=== PATIENT | female | born 1945 | race Caucasian/White ===

== ENCOUNTER 2018-11-15 15:49 | Inpatient (IN) | payer MEDICARE, BC ==
[2018-11-15] MEDS ORDERED: Ondansetron INJ* 2 MG/ML VIAL IV ONE (15:55)
[2018-11-15] MEDS ORDERED: NS 0.9% 1000 ML** 1,000 ML IV ONE ×3 (15:55→17:07)
--- NOTE | 2018-11-15 16:08 | ED ---
GI/ HPI - HPI Summary HPI Summary: A 73 y/o female brought in by [facility] ambulance presents to [facility] with a chief complaint of N/V/D. Diarrhea started one week ago while N/V started today. She also reports abdominal pain and a near syncopal episode while having a BM. Per EMS, the patient was found to be hypotensive. She was pale and diaphoretic upon arrival. IV fluids were given en route. - History of Current Complaint Stated Complaint: NEAR SYNCOPE, N/V PER /EMS Hx Obtained From: Patient, EMS Onset/Duration: Started Days Ago, Still Present Timing: Constant, Lasting Days Severity: Severe Current Severity: Severe Pain Intensity: 8 - out of 10 Location of Pain: Diffuse Pain Characteristics: Unable to describe Associated Signs and Symptoms: Positive: Nausea, Vomiting, Diarrhea, Abdominal Pain, Other: - near syncope. Negative: Fever Aggravating Factor(s): Nothing Alleviating Factor(s): Nothing - Allergy/Home Medications Allergies/Adverse Reactions: Allergies Allergy/AdvReac Type Severity Reaction Status Date / Time azithromycin Allergy Rash Verified 11/15/18 15:59 codeine Allergy Unknown Verified 11/15/18 16:02 Reaction Details levofloxacin [From Levaquin] Allergy Unknown Verified 11/15/18 16:00 Reaction Details Home Medications: Home Medications Anastrozole (NF) [Arimidex (NF)] 1 mg PO DAILY 11/15/18 [History Confirmed 11/15] Betamethasone Dip 0.05% ON(NF) [Betamethasone Dipr 0.05% OINT(NF)] 1 applic TOPICAL BID PRN 11/15/18 [History Confirmed 11/15/18] Cetirizine* [ZyrTEC 10 MG TAB*] 10 mg PO DAILY 11/15/18 [History Confirmed 11/15] Cholecalciferol TAB* [Vitamin D TAB*] 2,000 units PO DAILY 11/15/18 [History Confirmed 11/15/18] Denosumab(NF) [Prolia(NF)] 60 mg SUBCUT .TWICE YEARLY 11/15/18 [History Confirmed 11/15/18] Fluticasone-Salmeterol 100-50* [Advair Diskus 100-50*] 1 puff INH BID 11/15/18 [ History Confirmed 11/15/18] Gabapentin CAP(*) [Neurontin 100 mg CAP(*)] 100 mg PO QID 11/15/18 [History Confirmed 11/15/18] Hydroxychloroquine TAB* [Plaquenil TAB*] 400 mg PO DAILY 11/15/18 [History Confirmed 11/15/18] Lisinopril TAB* [Prinivil TAB*] 5 mg PO DAILY 11/15/18 [History Confirmed ] Omeprazole CAP (NF) [Prilosec CAP* 20 MG] 20 mg PO DAILY 11/15/18 [History Confirmed 11/15/18] Tacrolimus 0.03% OINT(NF) [Protopic 0.03% OINT(NF)] 1 applic TOPICAL BID PRN [History Confirmed 11/15/18] predniSONE TAB* [Deltasone TAB*] 5 mg PO DAILY 11/15/18 [History Confirmed 11/15] PMH/Surg Hx/FS Hx/Imm Hx Sensory History: Denies: Hx Deafness EENT History: Denies: Hx Deafness - Family History Known Family History: Negative: Blood Disorder - Social History Lives: With Family Hx Substance Use: No Review of Systems Positive: Skin Diaphoresis. 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 Skin: The skin is warm and dry and pale, diaphoretic. HEENT: The head is normocephalic and atraumatic. The pupils are equal and reactive. The conjunctivae are clear and without drainage. Nares are patent and without drainage. Mouth reveals moist mucous membranes and the throat is without erythema and exudate. The external ears are intact. The ear canals are patent and without drainage. The tympanic membranes are intact. Neck: The neck is supple with full range of motion and non-tender. There are no carotid bruits. There is no neck vein distension. Respiratory: Chest is non-tender. Lungs are clear to auscultation and breath sounds are symmetrical and equal. Cardiovascular: Heart is regular rate and rhythm. There is no murmur or rub auscultated. There is no peripheral edema and pulses are symmetrical and equal. Abdomen: Mild diffuse lower abdominal tenderness. There are normal bowel sounds heard in all four quadrants and there is no organomegaly palpated. Musculoskeletal: There is no back tenderness noted. Extremities are non-tender with full range of motion. There is good capillary refill. There is no peripheral edema or calf tenderness elicited. Neurological: Patient is alert and oriented to person, place and time. The patient has symmetrical motor strength in all four extremities. Cranial nerves are grossly intact. Deep tendon reflexes are symmetrical and equal in all four extremities. Psychiatric: The patient has an appropriate affect and does not exhibit any anxiety or depression. GCS: 14 Triage Information Reviewed: Yes Vital Signs Reviewed: Yes Diagnostics - Laboratory Result Diagrams: 11/15/18 16:01 11/15/18 16:01 Lab Statement: Any lab studies that have been ordered have been reviewed, and results considered in the medical decision making process. - CT abdomen/pelvis CT Interpretation Completed By: Radiologist Summary of CT Findings: No hydronephrosis is noted in either kidney. Nonobstructing calculi is noted. in both kidneys. ED physician has reviewed this imaging report. - EKG 15:59 Cardiac Rate: Other Rate - Paced rhythm at 85 bpm Summary of EKG Findings: EKG at 15:59 showed Paced rhythm at 85 bpm. GIGU Course/Dx - Course Course Of Treatment: On arrival, Ms. Mitchell was diaphoretic and lying on the gurney. She preferred to keep her eyes closed but open them and answered my questions readily. She told me that she's been having low abdominal pain for couple days accompanied by diarrhea and nausea and vomiting. She almost fainted while having a bowel movement and her called the ambulance. The ambulance crew found her to be hypotensive and give her fluids en route. When she arrived here her blood pressure was doing a little bit better and she was not tachycardic. She continued to receive IV fluids while her workup was in progress. She was found to have a mild leukocytosis and spiked a fever up to 102 at one point here in the emergency department. She was given antiemetics as well as Tylenol. The hospitalist service was contacted for admission and she was also given Rocephin with a concern for sepsis. - Diagnoses Provider Diagnoses: Dehydration, Abdominal pain, Gastroenteritis - Physician Notifications Discussed Care Of Patient With: Ngoc Charla Time Discussed With Above Provider: 17:17 Instructed by Provider To: Admit As Inpatient - Critical Care Time Critical Care Time: 30-74 min Discharge - Sign-Out/Discharge Documenting (check all that apply): Patient Departure - admit Patient Received Moderate/Deep Sedation with Procedure: No - Discharge Plan Condition: Stable Disposition: ADMITTED TO [facility] Referrals: No Primary Care Phys,NOPCP [Primary Care Provider] - - Billing Disposition and Condition Condition: STABLE Disposition: Admitted to [facility] - Attestation Statements Document Initiated by Herrerae: Yes Documenting Scribe: Glen Harry Provider For Whom Liangibmich is Documenting (Include Credential): Tello Corona MD Scribe Attestation: IGlen scribed for Tello Corona MD on 11/15/18 at 1805. Scribe Documentation Reviewed: Yes Provider Attestation: The documentation as recorded by the [place] accurately reflects the service I personally performed and the decisions made by me, Tello Corona MD Status of Scribe Document: Viewed
[2018-11-15 16:14] LABS: ABS Basophils 0 10^3/ul (0-0.2); ABS Eosinophils 0 10^3/ul (0-0.6); ABS Lymphocytes 1.4 10^3/ul (1.0-4.8); ABS Monocytes 1.1 10^3/ul (0-0.8); ABS Neutrophils 11.4 10^3/ul (1.5-7.7); ABS Nucleated RBC 0 10^3/ul; Eosinophil % 0.1 %; Hematocrit 39 % (33-41); Hemoglobin 12.7 g/dL (12.0-16.0); Lymphocyte % 9.8 %; Mean Corpuscular HGB Conc 33 g/dL (31-36); Mean Corpuscular Hemoglobin 31 pg (27-31); Mean Corpuscular Volume 95 fL (80-97); Mean Platelet Volume 8.8 fL (7.4-10.4); Nucleated Red Blood Cells % 0; Platelet Count 206 10^3/uL (150-450); Red Blood Count 4.08 10^6 /uL (3.70-4.87); Red Cell Distribution Width 15 % (10.5-15); White Blood Count 13.9 10^3/uL (3.5-10.8)
[2018-11-15 16:30] LABS: ALT 14 U/L (7-52); Albumin/Globulin Ratio 1.3 (1-3); Alkaline Phosphatase 44 U/L (34-104); BUN/Creatinine Ratio 24.1 (8-20); Blood Urea Nitrogen 45 mg/dL (6-24); C Reactive Protein 9.71 mg/L (<8.01); CO2 Carbon Dioxide 19 mmol/L (22-32); Calcium 8.9 mg/dL (8.6-10.3); Chloride 109 mmol/L (101-111); EGFR Non-African American 26.5 (>60); Globulin 3.2 g/dL (2-4); Glucose 132 mg/dL (70-100); Sodium 140 mmol/L (135-145); Total Protein 7.2 g/dL (6.4-8.9)
[2018-11-15 17:06] LABS: Anion Gap 12 mmol/L (2-11)
[2018-11-15] MEDS ORDERED: cefTRIAXone(*) 1 GM in NS 0.9% 50 ML* 50 ML IVPB ONE (17:06)
[2018-11-15] MEDS ORDERED: Acetaminophen TAB* 325 MG PO ONE (17:06)
[2018-11-15 18:11] LABS: Troponin I 0.03 ng/mL (<0.04)
[2018-11-15 18:12] LABS: Potassium Redraw 4.8 mmol/L (3.5-5.0)
[2018-11-15] MEDS ORDERED: Piperacillin/Tazobac ADVAN(*) 3.375 GM in NS 0.9% 100 ML* 100 ML IVPB ONE (18:14)
[2018-11-15 18:17] LABS: Urine Appearance Cloudy; Urine Bacteria Absent (Absent); Urine Bilirubin Negative (Negative); Urine Blood Negative (Negative); Urine Color Yellow; Urine Glucose Negative (Negative); Urine Ketones Negative (Negative); Urine Nitrite Negative (Negative); Urine Protein 1+(30 mg/dL) (Negative); Urine Red Blood Cell Trace(0-2/hpf) (Absent); Urine Specific Gravity 1.006 (1.010-1.030); Urine Urobilinogen Negative (Negative); Urine White Blood Cell Trace(0-5/hpf) (Absent)
[2018-11-15] MEDS ORDERED: Acetaminophen TAB* 325 MG PO PRN (18:22)
[2018-11-15] MEDS ORDERED: Zosyn per Pharmacy* NOTE FOLLOW UP SCH (19:00)
[2018-11-15] MEDS ORDERED: Lactated Ringers 1000 ML Bag* 1,000 ML IV SCH (19:00)
[2018-11-15] MEDS: Lactated Ringers 1000 ML Bag* 1,000 ML IV SCH (19:55)
--- NOTE | 2018-11-15 20:17 | PN ---
Hospitalist Progress Note Date of Service: 11/15/18 HOSPITALIST ADDENDUM Case reviewed and d/w Lorri Estrella NP. 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 Near syncopal episode today. Labs, EKG, CT reviewed. Suspect patient probably had viral gastroenteritis causing her diarrhea and probably now has severe sepsis secondary to UTI. Will monitor in ICU, continue fluid resuscitation, Zosyn. Will increase her steroids to stress dose.
[2018-11-15] MEDS: Mometasone/Formoter 100/5 MDI INH SCH (20:44)
[2018-11-15 20:45] LABS: Magnesium 1.5 mg/dL (1.9-2.7); Potassium 3.9 mmol/L (3.5-5.0)
[2018-11-15] MEDS: Hydrocortisone INJ* 100 MG VIAL IV SCH (20:54)
--- NOTE | 2018-11-15 21:15 | HP ---
CC: Dr. Tate Bowles, [address] [place] [address] * HISTORY AND PHYSICAL: DATE OF ADMISSION: 11/15/18 PRIMARY CARE PROVIDER: Dr. Tate Bowles, phone number [phone]. ATTENDING PHYSICIAN: Dr. Ngoc Brownlee * (dictated by Weston Luong, DAVID) CHIEF COMPLAINTS: 1. Syncope. 2. Nausea. 3. Diarrhea. 4. Vomiting. 5. Abdominal pain. HISTORY OF PRESENT ILLNESS: Mrs. 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 Patient reports she was in her normal state of health, residing in [place] until about a week ago, she started to have nausea and diarrhea. She had been started on Bystolic (beta velasquez) before the symptoms started; therefore, she contacted her basketball referee, who mentioned that the nausea and diarrhea could be related to the Bystolic. Patient was instructed to stop the Bystolic, which she did yesterday. Her last dose was the day before. Patient then started lisinopril yesterday. She reports that she felt improved yesterday as she was no longer having nausea and diarrhea. Patient boarded a plane and flew here to [place] to visit family. When she arrived in [place], she started to have nausea, vomiting, diarrhea, and lower abdominal pain again. Patient reports she was in the bathroom because she felt like she needed to have a bowel movement. She was not straining, but had a syncopal episode. EMS was called and she was brought to the emergency room. While in the emergency room, patient was found to be pale, diaphoretic, hypotensive. IV fluids were given. Patient was started on ceftriaxone and Zosyn was administered. In addition, patient was noted to have mild leukocytosis with a WBC of 13.9. She was also noted to be mildly acidotic with a carbon dioxide of 19, anion gap of 12, BUN of 45, and creatinine of 1.87. Patient also had an elevated lactic at 2.8. During her admission, her blood pressures were mostly below 100 systolically. In addition, she did have a temp recorded of 102.5 and was experiencing chills. Given these symptoms and findings, we were asked to admit patient to the hospital. PAST MEDICAL HISTORY: 1. Connective-tissue disease/autoimmune disorder. 2. Lymphoma of the lung, status post chemo and radiation. 3. 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 4. Multiple myeloma cells in her spine (being observed by [facility]). 5. Hypertension. 6. Hypothyroid. PAST SURGICAL HISTORY: Mastectomy. HOME MEDICATIONS: 1. Protopic 0.03% 1 application topical b.i.d. p.r.n. 2. Betamethasone 1 application topical b.i.d. p.r.n. 3. Lisinopril 5 mg p.o. daily. 4. Advair Diskus 100/50 one puff inhalation b.i.d. 5. Prolia 60 mg subcu twice yearly. 6. Zyrtec 10 mg p.o. daily. 7. Vitamin D 2000 units p.o. daily. 8. Arimidex 1 mg p.o. daily. 9. Prednisone 5 mg p.o. daily. 10. Plaquenil 400 mg p.o. daily. 11. Omeprazole 20 mg p.o. daily. 12. Gabapentin 100 mg p.o. q.i.d. ALLERGIES: SULFA DRUGS, CODEINE, FLOXIN, LEVAQUIN, AZITHROMYCIN, PHENOBARBITAL , DARVON/DARVOCET. FAMILY HISTORY: Patient's family history is noncontributory. It should be noted that patient's son also has vomiting and diarrhea and she was with this person on Monday. SOCIAL HISTORY: Patient does not smoke, does not drink, and does not do drugs. Patient lives with her in [place]. REVIEW OF SYSTEMS: A 14-point review of systems was performed and all pertinent positive and negative findings are in the HPI. All others are negative. PHYSICAL EXAMINATION GENERAL: Mrs. Mitchell is a 73-year-old female who is lying in bed in ED, appears in no acute distress, appears stated age. VITAL SIGNS: Temperature 102.5, HR 86, RR 18, O2 saturation 92%, BP 86/59. HEENT: ENT: EOMs intact. PERRLA. Oral mucosa is moist without lesion. Posterior pharynx is clear. NECK: Full range of motion. No lymphadenopathy. RESPIRATORY: Symmetrical chest expansion. No accessory muscle use. Lungs are clear to auscultation. No rhonchi, wheezes, or rubs. CV: Regular rate and rhythm. S1 and S2 present. No murmurs, rubs, or gallops. ABDOMEN: Soft. Nondistended. Tender to palpation on lower abdomen. Bowel sounds are normoactive. EXTREMITIES: Skin is warm and smooth bilaterally. No edema. No clubbing or cyanosis. Pedal pulses are 2+ bilaterally. MUSCULOSKELETAL: Full range of motion. No pain or deformities. NEUROLOGIC: Awake, alert and oriented x4. Motor strength is 5/5 in upper and lower extremities. SKIN: Grossly intact without lesions. DIAGNOSTIC STUDIES/LAB DATA: WBC 13.9, hemoglobin 12.7, hematocrit 39, platelets 206. Sodium 140, potassium 4.8, chloride 109, carbon dioxide 19, anion gap 12, BUN 45, creatinine 1.87, glucose 113, lactic acid 2.8. Troponin 0.03. CRP 9.71, lipase 146. TSH 0.90. CT abdomen and pelvis: Impression: No hydronephrosis is noted in either kidney. No obstructing calculi are noted in both kidneys. EKG: Impression: Paced rhythm. ASSESSMENT AND PLAN: Mrs. Mitchell is a 73-year-old female with a past medical history significant for autoimmune disease, lymphoma, cytoma, multiple myeloma, hypertension, hypothyroid who presented to the emergency department today with syncopal episode, nausea and vomiting, diarrhea and meet sepsis criteria. Patient will be admitted to the ICU for further evaluation. 1. Syncope: I suspect patient's syncope is secondary to dehydration given a week's worth of nausea and diarrhea with the addition of vomiting today. Patient's labs also support the diagnosis of dehydration. We will order an echo for further evaluation. We will rehydrate patient and then obtain orthostatic vital signs. 2. Nausea, vomiting, diarrhea, and abdominal pain: As mentioned above, patient had a CT in the emergency room that was unremarkable. Given that the patient's son is also experiencing nausea and vomiting, I suspect this could be a viral illness. Also on the differential includes Clostridium difficile, ova and parasite, and other bacterial causes. I have ordered stool cultures including Clostridium difficile and ova and parasite. Patient will be rehydrated with IV fluid. Patient will have repeat labs. Patient had a urinalysis which was unremarkable. It will be sent for culture. 3. Sepsis: Patient meets sepsis criteria given fever, leukocytosis, hypotension, and suspected source of GI. Patient received adequate IV fluid bolus in the emergency room. An additional liter of LR was ordered given patient's continued hypotension. Patient will also receive LR maintenance fluid. Patient was pancultured. Patient's lactic is 2.8 and will be repeated. Patient was given ceftriaxone in the emergency room and also given Zosyn. We will continue Zosyn. 4. Autoimmune disorder/connective-tissue disease: Patient is on long-term prednisone; therefore, we will hold her oral prednisone and give her IV hydrocortisone 50 mg q.8 hours. As patient improves, we can taper her back to her regular steroid dosing. We will continue patient's Plaquenil. 5. Hypertension: Given patient's hypotension and sepsis state, we will hold her lisinopril. 6. Hypothyroid: Patient's TSH is within normal range. We will continue her levothyroxine at her home dose. 7. FEN: I have placed patient n.p.o. given her nausea, vomiting and diarrhea. She can advance as tolerated. 8. Code status: Patient is a full code. 9. DVT prophylaxis: Based on the risk assessment, patient is at high risk; therefore, I will place patient on subcu heparin. TIME SPENT: Approximately 75 minutes were spent on this admission, greater than half the time was spent with the patient and her family, obtaining my history and performing my physical exam and reviewing my plan of care. This case has been reviewed with my attending, Dr. Brownlee, who is in agreement with my plan of care. WESTON LUONG, DAVID [id number]/[facility] #: [id number] NEYDA
[2018-11-15] MEDS ORDERED: Magnesium Sulfate 2 GM IV* 2 GM/50 ML BAG IVPB ONE (21:20)
--- NOTE | 2018-11-15 21:23 | PN ---
Sepsis Event Evaluation Date of Evaluation: 11/15/18 Time of Evaluation: 21:21 Current Stage of Sepsis: Sepsis Vital Signs - Last 12 Hours: Vital Signs - 12 hr Temp Pulse Resp BP Pulse Ox 11/15/18 20:00 86 15 110/53 92 11/15/18 19:53 77 150/80 98 11/15/18 19:46 84 15 92/53 93 11/15/18 19:35 89 18 104/60 93 11/15/18 19:34 100.1 F 86 18 104/60 93 11/15/18 19:33 98.9 F 87 20 105/46 94 11/15/18 19:22 87 19 99/50 92 11/15/18 19:21 86 18 105/46 93 11/15/18 19:16 86 18 86/59 92 11/15/18 19:01 86 17 91 11/15/18 19:00 85 17 99/49 92 11/15/18 18:45 85 18 97/49 95 11/15/18 18:31 87 18 105/60 94 11/15/18 18:15 88 20 116/56 94 11/15/18 18:12 110/62 11/15/18 18:01 89 23 96/55 94 11/15/18 17:46 88 20 107/54 95 11/15/18 17:38 92 19 123/45 91 11/15/18 17:19 90 19 97/54 94 11/15/18 17:14 102.5 F 11/15/18 17:05 93 23 85/55 94 11/15/18 17:03 94 21 76/58 93 11/15/18 17:00 89 17 62/41 93 11/15/18 16:35 88 18 97/64 93 11/15/18 16:07 83 20 100/62 94 11/15/18 16:04 83 17 96 11/15/18 15:52 97.6 F 84 20 100/62 99 Lactic Acid: 11/15/18 11/15/18 16:01 20:06 Lactic Acid 2.8 H* 0.8 - Cardiopulmonary Exam Capillary Refill: Immediate Respiratory: Symmetrical Chest Expansion and Respiratory Effort, Clear to Auscultation Cardiovascular: NL Sounds; No Murmurs; No JVD, RRR, No Edema - Peripheral Pulse Exam Radial Pulses: Bilateral Normal Pedal Pulses: Bilateral Normal - Skin Exam Skin Exam: Normal Turgor - [place] Coma Scale Best Eye Response: 4 - Spontaneous Best Motor Response: 6 - Obeys Commands Best Verbal Response: 5 - Oriented Coma Scale Total: 15 Assess/Plan/Problems-Billing Assessment: Improving. Lactic below 2. Temp below 100.5. Cont IVF hydration and abx. Repeat CBC and CMP tomorrow. Attending: Mikhail Espinosa
[2018-11-15] MEDS: Heparin VIAL(*) 5000 UNITS/ML VIAL (FIVE THOUSAND) SUBCUT SCH (22:14)
[2018-11-15] MEDS: ZOSYN 3.375 GM Q8H per EXTENDED INFUSION IVPB SCH ×2 (22:18)
[2018-11-16] MEDS: Lactated Ringers 1000 ML Bag* 1,000 ML IV SCH ×4 (02:28→20:30)
[2018-11-16] MEDS: Hydrocortisone INJ* 100 MG VIAL IV SCH ×3 (04:09→22:23)
[2018-11-16] MEDS: Levothyroxine TAB* 75 MCG TAB PO SCH (05:50)
[2018-11-16] MEDS: ZOSYN 3.375 GM Q8H per EXTENDED INFUSION IVPB SCH ×2 (05:50)
[2018-11-16] MEDS: Heparin VIAL(*) 5000 UNITS/ML VIAL (FIVE THOUSAND) SUBCUT SCH ×3 (05:50→22:20)
[2018-11-16 06:06] LABS: ABS Basophils 0 10^3/ul (0-0.2); ABS Eosinophils 0 10^3/ul (0-0.6); ABS Lymphocytes 1.1 10^3/ul (1.0-4.8); ABS Monocytes 0.4 10^3/ul (0-0.8); ABS Neutrophils 10.8 10^3/ul (1.5-7.7); ABS Nucleated RBC 0 10^3/ul; Eosinophil % 0 %; Hematocrit 29 % (33-41); Hemoglobin 9.4 g/dL (12.0-16.0); Lymphocyte % 8.9 %; Mean Corpuscular HGB Conc 32 g/dL (31-36); Mean Corpuscular Hemoglobin 31 pg (27-31); Mean Corpuscular Volume 95 fL (80-97); Mean Platelet Volume 8.1 fL (7.4-10.4); Nucleated Red Blood Cells % 0; Platelet Count 146 10^3/uL (150-450); Red Blood Count 3.05 10^6 /uL (3.70-4.87); Red Cell Distribution Width 15 % (10.5-15); White Blood Count 12.3 10^3/uL (3.5-10.8)
[2018-11-16 06:23] LABS: Albumin 2.8 g/dL (3.2-5.2); Albumin/Globulin Ratio 1.3 (1-3); BUN/Creatinine Ratio 25.8 (8-20); Calcium 7.2 mg/dL (8.6-10.3); EGFR African American 39.8 (>60); EGFR Non-African American 32.9 (>60); Globulin 2.2 g/dL (2-4); Magnesium 2.4 mg/dL (1.9-2.7); Potassium 4.2 mmol/L (3.5-5.0); Total Bilirubin 0.4 mg/dL (0.2-1.0)
[2018-11-16] MEDS: Hydroxychloroquine TAB* 200 MG PO SCH (08:17)
[2018-11-16] MEDS: Pantoprazole TAB * 40 MG TAB PO SCH (08:17)
[2018-11-16] MEDS: CMC:Anastrozole (NF) 1 MG TAB PO SCH (09:29)
--- NOTE | 2018-11-16 10:43 | ECHO ---
Patient: JIE KELLER [facility] Rec#: [id number] : 1945 Date: 11/16/2018 Age: 73y Height: 163 cm / 64.2 in Weight: 136 kg / 299.7 lbs Sex: F BSA: 2.33 Room#: ICU2 Admit Date#: 11/15/2018 Type: Inpatient Referring: WESTON LUONG E Reading: Babar Borges DO File Conversion Operator: Nataly Fox [facility] Transthoracic Echocardiogram Indication: Sepsis BP: 102/43 HR: 68 Rhythm: Paced Findings History: Lung lymphoma s/p chemo and radiation,breast cancer with implant on left,HTN,hypothyroid, multiple myeloma. Technical Comments: The study quality is good. Completed at 0815. Left Ventricle: The left ventricular chamber size is normal. Global left ventricular wall motion and contractility are within normal limits. There is normal left ventricular systolic function. The estimated ejection fraction is 60-65%. The assessment of diastolic function is non-diagnostic. Left Atrium: The left atrial chamber size is normal. Right Ventricle: The right ventricular cavity size is normal. The right ventricular global systolic function is normal. A pacemaker wire is visualized in the right ventricle. Right Atrium: The right atrial cavity size is normal. A pacemaker wire is visualized in the right atrium. Aortic Valve: The aortic valve is trileaflet. There is no evidence of aortic regurgitation. There is no evidence of aortic stenosis. Mitral Valve: Mild mitral annular calcification present. The mitral valve leaflets are mildly thickened. There is mild mitral regurgitation. There is no evidence of mitral stenosis. Tricuspid Valve: The tricuspid valve leaflets are normal. There is mild tricuspid regurgitation. There is evidence of mild pulmonary hypertension. There is no tricuspid stenosis. Pulmonic Valve: The pulmonic valve appears normal. There is trace to mild pulmonic regurgitation. There is no pulmonic stenosis. Pericardium: The pericardium appears normal. There is no significant pericardial effusion. Aorta: There is no dilatation of the ascending aorta. There is no dilatation of the aortic arch. There is no dilation of the aortic root. Pulmonary Artery: The main pulmonary artery is not well visualized. Venous: The inferior vena cava appears normal in size. There is a greater than 50% respiratory change in the inferior vena cava dimension. Conclusions The left ventricular chamber size is normal. Global left ventricular wall motion and contractility are within normal limits. There is normal left ventricular systolic function. The estimated ejection fraction is 60-65%. The right ventricular cavity size is normal. The right ventricular global systolic function is normal. A pacemaker wire is visualized in the right ventricle. There is evidence of mild pulmonary hypertension. No significant valvular abnormalities noted. None prior for comparison at time of interpretation Measurements Name Value Normal Range RVIDd (AP) 2D 2.3 cm (0.9 - 2.6) RVDdMajor (2D) 2.5 cm (2.2 - 4.4) RAd ISD 4CH 4.9 cm (3.4 - 4.9) RA (A4C)W 3 cm (2.9 - 4.6) IVSd (2D) 1 cm (0.6 - 1) LVPWd (2D) 1.2 cm (0.6 - 1) LVIDd (2D) 3.8 cm (3.6 - 5.4) LVIDs (2D) 2.5 cm - LV FS (2D) 34 % (25 - 45) Aortic Annulus 1.9 cm (1.4 - 2.6) Ao root diameter (2D) 3.3 cm (2.1 - 3.5) Ascending Ao 2.6 cm (2.1 - 3.4) Aortic arch 2.4 cm (1.8 - 3.4) Descending Ao 0.7 cm - LA dimension (AP) 2D 3.3 cm (2.3 - 3.8) LAd ISD 4CH 4.8 cm (2.9 - 5.3) LA ISD 4CH W 3.8 cm (2.5 - 4.5) Name Value Normal Range LA ESV SP 4CH (A/L) 23 ml - LA ESV SP 2CH (A/L) 35 ml - LA ESV BP (A/L) index 30 ml/m2 - Name Value Normal Range MV E-wave Vmax 1.5 m/sec - MV deceleration time 162 msec - MV A-wave Vmax 1.1 m/sec - MV E:A ratio 1.4 ratio - LV septal e' Vmax 0.06 m/sec - LV lateral e' Vmax 0.07 m/sec - LV E:e' septal ratio 25 ratio - LV E:e' lateral ratio 21 ratio - Name Value Normal Range AV Vmax 1.6 m/sec - AV VTI 34 cm - AV peak gradient 10 mmHg - AV mean gradient 5 mmHg - LVOT Vmax 0.9 m/sec - LVOT VTI 23.7 cm - LVOT peak gradient 4 mmHg - LVOT mean gradient 2 mmHg - Name Value Normal Range MR Vmax 4.8 m/sec - MR VTI 155 cm - Name Value Normal Range TR Vmax 3 m/sec - TR peak gradient 37 mmHg - RAP 3 mmHg - RVSP 40 mmHg - IVC diameter 1.9 cm - Name Value Normal Range PV Vmax 0.9 m/sec - PV peak gradient 3 mmHg -
--- NOTE | 2018-11-16 11:25 | PN ---
Date of Service: 11/16/18 Critical Care Services: Feeling much better today after rehydration. No fever since admission, and no vomiting or diarrhea. Vital Signs: Temp Pulse Resp BP SpO2 FiO2 99.3 F 72 21 113/58 96 Physical Exam: Gen:Alert, oriented Cardiac: reg rhythm. Abdomen: Soft and nontender Extremities: Warm. No cyanosis or edema. Fluid Balance (Past 24 Hours): 11/16/18 06:59 Intake Total 2652 Output Total 1220 Balance 1432 Weight 143 lb Intake: IV Fluids 2480 LR 1455 NS (0.9%) 25 IVPB 114 ABX - ZOSYN 114 Medicated IV 58 GEN - Magnesium 58 Output: Mendez 1220 Labs: 11/15/18 11/15/18 11/15/18 15:51 16:01 16:01 WBC 13.9 H RBC 4.08 Hgb 12.7 Hct 39 MCV 95 MCH 31 MCHC 33 RDW 15 Plt Count 206 MPV 8.8 Neut % (Auto) 81.8 Lymph % (Auto) 9.8 [place] % (Auto) 8.0 Eos % (Auto) 0.1 Baso % (Auto) 0.3 Absolute Neuts (auto) 11.4 H Absolute Lymphs (auto) 1.4 Absolute Monos (auto) 1.1 H Absolute Eos (auto) 0 Absolute Basos (auto) 0 Absolute Nucleated RBC 0 Nucleated RBC % 0 Sodium 140 Potassium TNP Chloride 109 Carbon Dioxide 19 L Anion Gap 12 H BUN 45 H Creatinine 1.87 H Est GFR ( Amer) 32.0 Est GFR (Non-Af Amer) 26.5 BUN/Creatinine Ratio 24.1 H Glucose 132 H Lactic Acid Calcium 8.9 Magnesium Total Bilirubin 0.40 AST TNP ALT 14 Alkaline Phosphatase 44 Troponin I C-Reactive Protein 9.71 H Total Protein 7.2 Albumin 4.0 Globulin 3.2 Albumin/Globulin Ratio 1.3 Lipase 146 H TSH 0.90 Urine Color Yellow Urine Appearance Cloudy Urine pH 6.0 Ur Specific Ferguson 1.006 L Urine Protein 1+(30 mg/dl) A Urine Ketones Negative Urine Blood Negative Urine Nitrate Negative Urine Bilirubin Negative Urine Urobilinogen Negative Ur Leukocyte Esterase Trace A Urine WBC (Auto) Trace(0-5/hpf) Urine RBC (Auto) Trace(0-2/hpf) Urine Bacteria Absent Urine Glucose Negative 11/15/18 11/15/18 11/15/18 16:01 17:14 20:06 WBC RBC Hgb Hct MCV MCH MCHC RDW Plt Count MPV Neut % (Auto) Lymph % (Auto) [place] % (Auto) Eos % (Auto) Baso % (Auto) Absolute Neuts (auto) Absolute Lymphs (auto) Absolute Monos (auto) Absolute Eos (auto) Absolute Basos (auto) Absolute Nucleated RBC Nucleated RBC % Sodium Potassium 4.8 3.9 Chloride Carbon Dioxide Anion Gap BUN Creatinine Est GFR ( Amer) Est GFR (Non-Af Amer) BUN/Creatinine Ratio Glucose Lactic Acid 2.8 H* Calcium Magnesium 1.5 L Total Bilirubin AST 23 ALT Alkaline Phosphatase Troponin I 0.03 C-Reactive Protein Total Protein Albumin Globulin Albumin/Globulin Ratio Lipase TSH Urine Color Urine Appearance Urine pH Ur Specific Ferguson Urine Protein Urine Ketones Urine Blood Urine Nitrate Urine Bilirubin Urine Urobilinogen Ur Leukocyte Esterase Urine WBC (Auto) Urine RBC (Auto) Urine Bacteria Urine Glucose 11/15/18 11/16/18 11/16/18 20:06 05:55 05:55 WBC 12.3 H RBC 3.05 L Hgb 9.4 L Hct 29 L MCV 95 MCH 31 MCHC 32 RDW 15 Plt Count 146 L MPV 8.1 Neut % (Auto) 87.5 Lymph % (Auto) 8.9 [place] % (Auto) 3.5 Eos % (Auto) 0 Baso % (Auto) 0.1 Absolute Neuts (auto) 10.8 H Absolute Lymphs (auto) 1.1 Absolute Monos (auto) 0.4 Absolute Eos (auto) 0 Absolute Basos (auto) 0 Absolute Nucleated RBC 0 Nucleated RBC % 0 Sodium 144 Potassium 4.2 Chloride 116 H Carbon Dioxide 17 L Anion Gap 11 BUN 40 H Creatinine 1.55 H Est GFR ( Amer) 39.8 Est GFR (Non-Af Amer) 32.9 BUN/Creatinine Ratio 25.8 H Glucose 78 Lactic Acid 0.8 Calcium 7.2 L Magnesium 2.4 Total Bilirubin 0.40 AST 22 ALT 10 Alkaline Phosphatase 39 Troponin I C-Reactive Protein Total Protein 5.0 L Albumin 2.8 L Globulin 2.2 Albumin/Globulin Ratio 1.3 Lipase TSH Urine Color Urine Appearance Urine pH Ur Specific Ferguson Urine Protein Urine Ketones Urine Blood Urine Nitrate Urine Bilirubin Urine Urobilinogen Ur Leukocyte Esterase Urine WBC (Auto) Urine RBC (Auto) Urine Bacteria Urine Glucose Studies: Cardiac ECHO - Normal right and left ventricular function. Nutrition: Has been NPO Impression: Episode yesterday (intense nausea and vomiting) sounds like an acute gastroenteritis (?food poisoning) on top of the more chronic problem with diarrhea. The acute process has resolved, but patient is still dehydrated by BUN /Creat. Has been hemodynamically stable. There has been no stool since admission , so no C diff assay or other stool studies have been sent. Plan: 1. GI evaluation of chronic diarrhea. 2. Continue hydration and restart oral diet 3. Transfer out of ICU today.
[2018-11-16] MEDS: Mometasone/Formoter 100/5 MDI INH SCH ×2 (12:39→20:04)
[2018-11-16] MEDS: Gabapentin CAP(*) 100 MG PO SCH ×3 (12:59→22:19)
--- NOTE | 2018-11-16 21:27 | CONS ---
CC: Dr. Tate Bowles CONSULTATION REPORT: DATE OF CONSULT: 11/16/18 PRIMARY CARE PROVIDER: Dr. Tate Bowles in [place], [place] and the phone number is [phone]. REASON FOR CONSULTATION: Diarrhea. 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 She was in her normal state of health about a [id number]-half ago, then she started to develop rather acute nausea and diarrhea. Prior to this, she had been on a beta-velasquez, Bystolic, and this had increased her bowel frequency significantly. She called her sexual health physician and they had switched her to a different medication; however, she just started that yesterday evening and believes it was lisinopril. She later boarded a plane to visit her family and since arriving, started to have profuse nausea, vomiting, and diarrhea rather suddenly in onset. Her son who she saw 2 days ago actually had similar, but less intense symptoms. She denies any black or blood in the stool. She did have diarrhea previously, but today states that she has not had a bowel movement and her nausea and vomiting are better. Her appetite was poor over the last few days, but today it is starting to come back. No recent antibiotic history, except in July she was treated for pneumonia with unclear antibiotic. No new medications outside the Bystolic, which was recently switched to lisinopril. She does not take any herbals or supplements. She had a previous EGD and colonoscopy which were unremarkable per her about 2 years ago in [facility] and follows with a primary thinner sprayer there. Outside her son, there have been no other sick contacts. Weight has been stable. She does admit to increased urination during this time as well and a subjective fever at home and did have a fever of 102 in the emergency room. The remainder of the 14-point review of systems is grossly negative. 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 PAST SURGICAL HISTORY: Mastectomy. HOME MEDICATIONS: Include: 1. Protopic. 2. Betamethasone. 3. Lisinopril. 4. Advair. 5. Prolia. 6. Zyrtec. 7. Vitamin D. 8. Arimidex. 9. Prednisone. 10. Plaquenil. 11. Omeprazole. 12. Gabapentin. ALLERGIES: Include SULFA DRUGS, CODEINE, FLOXIN, LEVAQUIN, AZITHROMYCIN, PHENOBARBITAL, and DARVOCET. FAMILY HISTORY: She denies any family history of colorectal cancer or inflammatory bowel disease. SOCIAL HISTORY: Lives in [place] in [place]. She does not smoke, does not consume alcohol. REVIEW OF SYSTEMS: The remainder of the 14-point review of systems is grossly negative. PHYSICAL EXAM: Vital Signs: Blood pressure is 100/68, pulse is 74, respiratory rate is 18, she is 99% on room air, T-max was 102.5 yesterday evening around 5:14, has not had a significant fever since. General: Alert and oriented x3, in no acute distress. HEENT: Atraumatic, normocephalic. Pupils equal, round, reactive to light. Extraocular movements are intact. Conjunctivae are pink. Sclerae are anicteric. Cardiovascular: Regular rate and rhythm. S1, S2. Pulmonary: Grossly clear to auscultation bilaterally with scant rales at the right base. Abdomen: Soft, nontender, nondistended. Bowel sounds positive. Extremities: No clubbing, no cyanosis, no edema. Skin is without rash. Psych: Appropriate mood and affect. Rectal exam: scant yellow stool, normal tone. DIAGNOSTIC STUDIES/LAB DATA: Hemoglobin is 12.7, WBC count was 13.9 on admission, today is 12.3 and hemoglobin is 9.4, her platelet count is 146. BUN was 40, creatinine was 1.55, lactic acid was 0.8. Albumin is 2.8. Urine was scant protein, but otherwise fairly . She had a CT of the abdomen and pelvis on 11/15/18. It revealed no hydronephrosis in either kidney, nonobstructing calculi are noted in both kidneys. Of note, no dilated loops of bowel were noted and the colon was filled with stool. ASSESSMENT AND PLAN: This is a 73-year-old female with acute diarrhea on chronic loose stools. 1. Acute diarrhea, appeared to be an abrupt illness that she seems to be recovering from at this moment. Her son had a similar, but less intense symptoms. Today, she seems to be improving and has not had a significant bowel movement. Her abdominal exam is benign. She is anemic; however, normal hemoglobin is roughly 8.5 to 9.5 with her smoldering multiple myeloma she states. She had a colonoscopy and EGD 2 years ago without significant findings. Some of the loose stool that she had been having prior may have been related to a recent medication change. In regards, I recommended a diet high in fiber when she does recover from this illness and for her to follow up with her primary thinner sprayer in [facility] in the next month. Her thyroid testing has been normal and her creatinine is continuing to improve. I suspect that she will continue to improve over this illness. 2. Smoldering multiple myeloma with known anemia. Per primary team. 3. Acute kidney injury. Per primary team. [id number]/[facility] #: [id number] MTDFei
[2018-11-17] MEDS: Lactated Ringers 1000 ML Bag* 1,000 ML IV SCH ×2 (02:39→09:06)
[2018-11-17] MEDS: Levothyroxine TAB* 75 MCG TAB PO SCH (06:17)
[2018-11-17] MEDS: Heparin VIAL(*) 5000 UNITS/ML VIAL (FIVE THOUSAND) SUBCUT SCH ×2 (06:18→14:15)
[2018-11-17] MEDS: Hydrocortisone INJ* 100 MG VIAL IV SCH (06:18)
[2018-11-17] MEDS: Mometasone/Formoter 100/5 MDI INH SCH (07:17)
[2018-11-17] MEDS ORDERED: predniSONE TAB* 10 MG PO SCH (09:00)
[2018-11-17] MEDS: CMC:Anastrozole (NF) 1 MG TAB PO SCH (09:03)
[2018-11-17] MEDS: Pantoprazole TAB * 40 MG TAB PO SCH (09:04)
[2018-11-17] MEDS: Hydroxychloroquine TAB* 200 MG PO SCH (09:04)
[2018-11-17] MEDS: Gabapentin CAP(*) 100 MG PO SCH ×2 (09:05→14:15)
[2018-11-17 09:27] LABS: Hematocrit 29 % (33-41); Hemoglobin 9.5 g/dL (12.0-16.0); Mean Corpuscular HGB Conc 33 g/dL (31-36); Mean Corpuscular Hemoglobin 31 pg (27-31); Mean Corpuscular Volume 94 fL (80-97); Mean Platelet Volume 8.4 fL (7.4-10.4); Platelet Count 156 10^3/uL (150-450); Red Blood Count 3.09 10^6 /uL (3.70-4.87); Red Cell Distribution Width 15 % (10.5-15); White Blood Count 9.1 10^3/uL (3.5-10.8)
[2018-11-17 09:44] LABS: BUN/Creatinine Ratio 26.6 (8-20); Calcium 7.5 mg/dL (8.6-10.3); EGFR African American 49.6 (>60); Magnesium 2.4 mg/dL (1.9-2.7); Potassium 3.9 mmol/L (3.5-5.0)
[2018-11-17] MEDS ORDERED: Enoxaparin(*) 30 MG/0.3 ML SYR SUBCUT ONE (14:40)
[2018-11-17 15:55] VITALS: BP 132/58
--- NOTE | 2018-11-18 06:53 | DS ---
CC: Dr. Chuy Romero * DISCHARGE SUMMARY: DATE OF ADMISSION: 11/15/18 DATE OF DISCHARGE: 11/17/18 PRIMARY CARE PHYSICIAN: Tate Bowles MD, [place], [place], Phone number [phone]. DISPOSITION: To home. CONDITION: Improved. CONSULTS: Dr. Chuy Romero PRIMARY DIAGNOSES: 1. Gastroenteritis complicated by severe sepsis. 2. Acute kidney insufficiency secondary to hypovolemia. SECONDARY DIAGNOSES: 1. Multiple myeloma. 2. Plasmacytosis of right hip. 3. Lymphoma of lung. 4. Hypertension. 5. Hypothyroid. 6. Connective tissue disorder, autoimmune, on prednisone. MEDICATIONS ON DISCHARGE: 1. Prednisone 5 mg p.o. daily. 2. Levothyroxine 75 mcg daily. 3. Advair 1 puff twice a day. 4. Denosumab 60 mg subcu twice yearly. 5. Zyrtec 10 mg daily. 6. Vitamin D 2000 units daily. 7. Anastrozole 1 mg p.o. daily. 8. Hydroxychloroquine 400 mg daily. 9. Omeprazole 20 mg daily. 10. Gabapentin 100 mg 4 times daily. HISTORY OF PRESENT ILLNESS: Ms. Mitchell is a 73-year-old woman with a past medical history of connective tissue disease on prednisone, smoldering multiple myeloma, lymphoma of her lungs, status post chemo and radiation, hypertension, hypothyroid, plasmacytoma of her hip, who is presenting to the emergency room after a syncopal episode. She states she was in her normal state of health presenting in [place] until approximately 1 week prior to admission when she started to experience nausea and diarrhea. Around that time, she was started on Bystolic and she thought her symptoms may be secondary to this new medication, so she contacted her secretary board of commissioners, who told her to stop the Bystolic and switched to lisinopril. This occurred 1 day before presentation and she did take 1 dose of lisinopril. She did feel slightly better and was no longer having diarrhea and the patient boarded plane to fly to [place] to visit family here. On arrival, she began to have recurrence of her nausea, vomiting, diarrhea, and lower abdominal pain. While seated on the toilet, feeling like she had a bowel movement, she experiences syncopal episode, so EMS was called to transfer the patient to the emergency room. HOSPITAL COURSE: While in the emergency room, she was found to be pale, diaphoretic, and hypotensive, so IV fluids were initiated. She is also started on ceftriaxone and Zosyn only in the emergency room. Her white count was noted to be 13.9 and she was mildly acidotic with a carbon dioxide of 19, anion gap of 12, BUN/creatinine ratio of 45/1.87 with an elevated lactic acid to 2.8, which could be resolved with fluids. She was noted to have hypotension and a temperature of 102.5 while experiencing chills, so she was admitted to the intensive care unit for aggressive resuscitation from severe sepsis. While in the ICU, she received a total of 3 L of normal saline and 2 L of Lactated Ringer 's and was placed on maintenance fluid with quick resolution of her hypotension. She was also given stress dose steroids given her history of chronic prednisone use. She was not continued on IV antibiotics, administered in the emergency room. She had resolution of her nausea, vomiting, and diarrhea while in the hospital. By second day of admission, the patient reports that she felt back near her baseline. She was still on maintenance fluids, but able to tolerate oral medication. She does report mild shortness of breath on ambulation, so a chest x-ray was obtained, which showed very small pleural effusions. It is noted that her echo had been normal the previous day, so her fluids were stopped. There are also some atelectatic changes on x-rays, so she was given instructions on an incentive spirometer to take with her. The patient stated she felt ready to go home and that she was no longer on IV steroids or IV fluids and she is tolerating p.o. She was deemed ready for discharge. Otherwise, 10-point review of systems is negative. The patient was evaluated by Gastroenterology while in ICU and it was thought that her acute diarrhea was due to an infectious gastroenteritis, especially given her son has similar, but less intense symptoms and the patient had resolution with IV fluids in the hospital. Stool studies were ordered and are still pending at the time of discharge. PHYSICAL EXAMINATION: Vital Signs: Prior 24-hour T-max 99, heart rate 70s, respiratory rate 12, blood pressure 132/58, oxygen saturation 94% on room air. General: Well-appearing woman, alert, and interactive, very pleasant and engaging. No pallor or diaphoresis noted. HEENT: No cervical LAD. Lungs: Bibasilar crackles slightly improved with deep breath, otherwise clear to auscultation bilaterally. Heart: Regular rate and rhythm. No murmurs, gallops , or rubs. Port noted at right upper chest. Abdomen: Soft, nontender, nondistended. Lower extremities without evidence of edema, warm and well perfused. DIAGNOSTIC STUDIES: Abdomen and pelvis CT without contrast, the lung bases demonstrate suggestion of some loculated fluid in the left fissure. There may be some mild airspace disease in the lingula and left lower lobe. The heart is enlarged. No pericardial effusion is noted. Pacemaker leads are in place. Pancreas demonstrate no mass or pancreatic duct dilatation. CBD not dilated. Kidneys without hydronephrosis, but calcification is noted in the lower pole of the right kidney and left kidney demonstrates nonobstructing calculi. No retroperitoneal lymphadenopathy is noted. No dilated loops of bowel are noted. Chest x-ray small bilateral pleural effusions with bibasilar atelectasis. Transthoracic echocardiogram LV chamber size normal. Global LV wall motion and contractility within normal limits. Normal LV systolic function with EF 60% to 65%, RV capacity size, and global systolic function normal. Pacer wire visualized. Evidence of mild pulmonary hypertension. No significant valvular abnormalities are noted. DISCHARGE PLAN: The patient is to return home and resume a normal level of activity and regular diet as tolerated with close attention to maintaining an adequate level of hydration. She is to follow up with her primary care physician, building components designer in [place] within the next week or 2 for ongoing monitoring of her blood pressure, kidney function, and resolution of her diarrhea. She is to remain on all of her home medications with the exception of discontinuation of lisinopril given low to normal blood pressures while admitted for hypovolemia and hypotension. She has a blood pressure cuff at home and will continue to check her blood pressure. I can restart lisinopril if persistently above her goal of 130/80. TIME SPENT: Approximately 60 minutes spent on discharge of this patient, more than half of which was spent with care, coordination at bedside for physical exam, interview, and the patient's education. [id number]/[facility] #: [id number] [facility]
[2018-11-18] MEDS ORDERED: predniSONE TAB* 5 MG PO SCH (09:00)
== END 2018-11-17 16:20 | disposition home or self-care (01) | DRG 872 ==
LOC: ED 15:49 → ICU 18:22 → MED 11-16 12:43
PROVIDERS: ADMIT Internal Medicine; ATTEND Internal Medicine
DX: A41.9 Sepsis, unspecified organism (principal); N17.9 Acute kidney failure, unspecified; C90.00 Multiple myeloma not having achieved remission; C85.92 Non-Hodgkin lymphoma, unspecified, intrathoracic lymph nodes; J98.11 Atelectasis; J90 Pleural effusion, not elsewhere classified; K52.9 Noninfective gastroenteritis and colitis, unspecified; R65.20 Severe sepsis without septic shock; D72.822 Plasmacytosis; E86.0 Dehydration; I27.20 Pulmonary hypertension, unspecified; I95.9 Hypotension, unspecified; I10 Essential (primary) hypertension; E03.9 Hypothyroidism, unspecified; L94.8 Other specified localized connective tissue disorders; Z92.21 Personal history of antineoplastic chemotherapy; Z92.3 Personal history of irradiation; Z79.52 Long term (current) use of systemic steroids; Z79.899 Other long term (current) drug therapy; Z88.1 Allergy status to other antibiotic agents; Z88.5 Allergy status to narcotic agent; Z88.2 Allergy status to sulfonamides; Z88.8 Allergy status to other drugs, medicaments and biological substances
CPT/HCPCS: 36415; 71046; 74176; 80048; 80053; 81003; 81015; 83605; 83690; 83735; 84132; 84443; 84484; 85025; 85027; 86140; 87040; 87045; 87046; 87077; 87086; 87177; 87209; 87328; 87329; 87493; 87641; 87899; 93005; 93306; 99285; A9270-GY; J0696; J1642; J1644; J1720; J2405; J2543; J3475; J7512

== ENCOUNTER 2018-11-18 09:24 | Observation (INO) | payer MEDICARE, BC ==
--- NOTE | 2018-11-18 10:03 | ED ---
Shortness of Breath - HPI Summary HPI Summary: This patient is a 73 year old F presenting to [facility] accompanied by her with a chief complaint of SOB since 1 day ago. The patient was discharged from [facility] 1 day ago. The patient notes that a CXR taken 1 day ago revealed some fluid in her lungs. The patient rates the pain 8/10 in severity. Symptoms aggravated by lying down. Symptoms alleviated by nothing. Patient reports spasms of lower back pain. - History of Current Complaint Chief Complaint: EDShortnessOfBreath Time Seen by Provider: 11/18/18 09:35 Hx Obtained From: Patient Onset/Duration: Lasting Hours, Still Present Current Severity: Mild Dyspnea At: Rest Aggrevating Factors: Recumbent Position Alleviating Factors: Nothing - Allergy/Home Medications Allergies/Adverse Reactions: Allergies Allergy/AdvReac Type Severity Reaction Status Date / Time azithromycin Allergy Rash Verified 11/18/18 09:24 codeine Allergy Unknown Verified 11/18/18 09:24 Reaction Details levofloxacin [From Levaquin] Allergy Unknown Verified 11/18/18 09:24 Reaction Details Home Medications: Home Medications Lisinopril 5 mg PO DAILY 11/18/18 [History Confirmed 11/18/18] PMH/Surg Hx/FS Hx/Imm Hx Endocrine/Hematology History: Reports: Hx Blood Transfusions, Hx Thyroid Disease - hypothyroidism, Hx Anemia Denies: Hx Diabetes Cardiovascular History: Reports: Hx Hypercholesterolemia, Hx Hypertension, Hx Pacemaker/ICD Respiratory History: Reports: Hx Asthma - allergy induced, Hx Chronic Bronchitis , Hx Lung Cancer, Hx Pneumonia, Hx Seasonal Allergies GI History: Reports: Hx Gastroesophageal Reflux Disease, Hx Hiatal Hernia - many years ago, Hx Ulcer - gastric Musculoskeletal History: Reports: Hx Arthritis - RA, Hx Back Problems - multiple myeloma and RA Sensory History: Reports: Hx Cataracts - b/l surgeries 2011, Hx Contacts or Glasses - reading glasses Denies: Hx Deafness, Hx Hearing Aid Opthamlomology History: Reports: Hx Cataracts - b/l surgeries 2011, Hx Contacts or Glasses - reading glasses Neurological History: Reports: Hx Migraine, Other Neuro Impairments/Disorders - neuropathy d/t chemo - Cancer History Cancer Type, Location and Year: L breast cancer, multiple myeloma, single cell plasma cytoma Hx Chemotherapy: Yes Hx Radiation Therapy: Yes - Surgical History Surgery Procedure, Year, and Place: tonsillectomy, hysterectomy, L mastectomy and reconstruction Hx Anesthesia Reactions: No Infectious Disease History: No Infectious Disease History: Reports: Hx Shingles Denies: Hx Clostridium Difficile, Hx of Known/Suspected MRSA, Hx Tuberculosis , Traveled Outside the [place] in Last 30 Days - Family History Known Family History: Negative: Blood Disorder - Social History Alcohol Use: None Hx Substance Use: No Substance Use Type: Reports: None Smoking Status (MU): Never Smoked Tobacco Review of Systems Negative: Fever Negative: Epistaxis Positive: Shortness Of Breath Negative: Vomiting Positive: Myalgia - lower back pain All Other Systems Reviewed And Are Negative: Yes Physical Exam - Summary Physical Exam Summary: Appearance: The patient is well-nourished in no acute distress and in no acute pain. Skin: The skin is warm and dry and skin color reflects adequate perfusion. HEENT: The head is normocephalic and atraumatic. The pupils are equal and reactive. The conjunctivae are clear and without drainage. Nares are patent and without drainage. Mouth reveals moist mucous membranes and the throat is without erythema and exudate. The external ears are intact. The ear canals are patent and without drainage. The tympanic membranes are intact. Neck: The neck is supple with full range of motion and non-tender. There are no carotid bruits. There is no neck vein distension. Respiratory: Chest is non-tender. Crackles about 1/[address] bilaterally. Tachypnea Cardiovascular: Heart is regular rate and rhythm. There is no murmur or rub auscultated. There is no peripheral edema and pulses are symmetrical and equal. Abdomen: The abdomen is soft and non-tender. There are normal bowel sounds heard in all four quadrants and there is no organomegaly palpated. Musculoskeletal: There is no back tenderness noted. Extremities are non-tender with full range of motion. There is good capillary refill. There is no peripheral edema or calf tenderness elicited. Neurological: Patient is alert and oriented to person, place and time. The patient has symmetrical motor strength in all four extremities. Cranial nerves are grossly intact. Deep tendon reflexes are symmetrical and equal in all four extremities. Psychiatric: The patient has an appropriate affect and does not exhibit any anxiety or depression. Triage Information Reviewed: Yes Vital Signs On Initial Exam: Initial Vitals Temp Pulse Resp BP Pulse Ox 98.1 F 123 24 165/80 96 11/18/18 09:25 11/18/18 09:25 11/18/18 09:25 11/18/18 09:25 11/18/18 09:25 Vital Signs Reviewed: Yes Diagnostics - Vital Signs Vital Signs Temp Pulse Resp BP Pulse Ox 11/18/18 09:25 98.1 F 123 24 165/80 96 - Laboratory Result Diagrams: 11/18/18 10:31 11/18/18 16:30 Lab Statement: Any lab studies that have been ordered have been reviewed, and results considered in the medical decision making process. - Radiology CXR Radiology Interpretation Completed By: Radiologist Summary of Radiographic Findings: IMPRESSION: PACEMAKER LEADS IN PLACE. CENTRAL LINE IS IN PLACE. BILATERAL PLEURAL. EFFUSIONS ARE NOTED. INCREASED INTERSTITIAL EDEMA IS NOTED. Dr. Corona has reviewed this report. - EKG 10:06 Cardiac Rate: NL - at 79 bpm EKG Rhythm: Sinus Tachycardia - paced Summary of EKG Findings: paced rhythm at 79 bpm Course/Dx - Course Course Of Treatment: Ms. Mitchell certifying short of breath during the night and found that she had to sit up and proper self up in bed to feel a little bit better. Her back is sore from trying to sleep in that position. On arrival she was clearly in respiratory insufficiency and clinically seemed to be fluid overloaded. She was kept on a monitor labs and chest x-ray were obtained and verified the diagnosis. She was given IV Lasix in the hospitalist service was contacted for admission. - Diagnoses Provider Diagnoses: Pulmonary edema - Physician Notifications Discussed Care of Patient With: Ngoc Lottima Time Discussed With Above Provider: 12:04 Instructed by Provider To: Will See In ED - Critical Care Time Critical Care Time: 30-74 min Discharge - Sign-Out/Discharge Documenting (check all that apply): Patient Departure - admit [place] [facility] Patient Received Moderate/Deep Sedation with Procedure: No - Discharge Plan Condition: Stable Disposition: ADMITTED TO [facility] - Billing Disposition and Condition Condition: STABLE Disposition: Admitted to [facility] - Attestation Statements Document Initiated by Scribe: Yes Documenting Scribe: Ladi Preciado Provider For Whom Scribe is Documenting (Include Credential): Tello Corona MD Scribe Attestation: Ladi Miller, scribed for Tello Corona MD on 11/18/18 at 1815. Scribe Documentation Reviewed: Yes Provider Attestation: The documentation as recorded by the candidaibe, Ladi Preciado accurately reflects the service I personally performed and the decisions made by me, Tello Corona MD Status of [place] Document: Viewed
[2018-11-18 10:42] LABS: Hematocrit 30 % (33-41); Hemoglobin 9.9 g/dL (12.0-16.0); Mean Corpuscular HGB Conc 33 g/dL (31-36); Mean Corpuscular Hemoglobin 31 pg (27-31); Mean Corpuscular Volume 94 fL (80-97); Mean Platelet Volume 8.1 fL (7.4-10.4); Platelet Count 166 10^3/uL (150-450); Red Blood Count 3.16 10^6 /uL (3.70-4.87); Red Cell Distribution Width 15 % (10.5-15); White Blood Count 11.8 10^3/uL (3.5-10.8)
[2018-11-18 11:08] LABS: ABS Basophils 0 10^3/ul (0-0.2); ABS Eosinophils 0 10^3/ul (0-0.6); ABS Lymphocytes 1.8 10^3/ul (1.0-4.8); ABS Neutrophils 8.9 10^3/ul (1.5-7.7); ABS Nucleated RBC 0 10^3/ul; Eosinophil % 0.2 %; Lymphocyte % 15.1 %; Nucleated Red Blood Cells % 0
[2018-11-18 11:16] LABS: ALT 16 U/L (7-52); AST 31 U/L (13-39); Albumin 3.2 g/dL (3.2-5.2); Albumin/Globulin Ratio 1.3 (1-3); Alkaline Phosphatase 52 U/L (34-104); BUN/Creatinine Ratio 28.7 (8-20); Blood Urea Nitrogen 31 mg/dL (6-24); CO2 Carbon Dioxide 22 mmol/L (22-32); Calcium 7.8 mg/dL (8.6-10.3); EGFR African American 60.3 (>60); EGFR Non-African American 49.9 (>60); Globulin 2.4 g/dL (2-4); Glucose 92 mg/dL (70-100); Potassium 3.4 mmol/L (3.5-5.0); Sodium 143 mmol/L (135-145); Total Protein 5.6 g/dL (6.4-8.9)
[2018-11-18 11:39] LABS: Anion Gap 9 mmol/L (2-11); Chloride 112 mmol/L (101-111); Troponin I 0.06 ng/mL (<0.04)
[2018-11-18] MEDS ORDERED: Furosemide IV* 10 MG/ML VIAL (40 MG) IV SLOW PU ONE (11:59)
[2018-11-18] MEDS ORDERED: Acetaminophen TAB* 325 MG PO PRN (13:16)
[2018-11-18] MEDS ORDERED: Al Hydrox/Mg Hydrox/Simet LIQ* 30 ML UDC PO PRN (13:16)
[2018-11-18] MEDS ORDERED: Potassium Chlor TAB* 20 MEQ TAB.ER PO ONE (13:56)
[2018-11-18] MEDS ORDERED: hydrALAZINE IV* 20 MG/ML VIAL IV SLOW PU PRN (13:59)
[2018-11-18] MEDS ORDERED: Iodixanol* (CONTRAST) 320 MG/ML 100 ML SDV IV ONE (14:08)
[2018-11-18 15:20] LABS: Troponin I 0.08 ng/mL (<0.04)
[2018-11-18 17:09] LABS: Anion Gap 9 mmol/L (2-11); BUN/Creatinine Ratio 23.4 (8-20); Blood Urea Nitrogen 26 mg/dL (6-24); CO2 Carbon Dioxide 26 mmol/L (22-32); Calcium 7.9 mg/dL (8.6-10.3); Chloride 108 mmol/L (101-111); EGFR African American 58.5 (>60); EGFR Non-African American 48.3 (>60); Glucose 96 mg/dL (70-100); Potassium 3.1 mmol/L (3.5-5.0); Sodium 143 mmol/L (135-145)
[2018-11-18 17:16] LABS: Troponin I 0.08 ng/mL (<0.04)
--- NOTE | 2018-11-18 17:29 | HP ---
HISTORY AND PHYSICAL: DATE OF ADMISSION: 11/18/18 PROVIDER: VANITA Cota PRIMARY CARE PHYSICIAN: Dr. Tate Bowles, phone number [phone]. ATTENDING PHYSICIAN: Dr. Ngoc Brownlee * (dictated by VANITA Cota). CHIEF COMPLAINT: Shortness of breath and orthopnea. HISTORY OF PRESENT ILLNESS: June Mitchell is a 73-year-old white female with past medical history significant for history of lymphoma; history of cytoma ; history of left breast cancer; multiple myeloma; hypertension; bradycardia, status post pacemaker, who presented to the emergency department today with complaints of orthopnea and shortness of breath that began at approximately 3: 00 a.m. this morning. It is of note that the patient was discharged from this facility a day prior to presentation. She was hospitalized here on 11/15/18 with syncope and her stay was complicated by recurrent hypotension and received at least 5 L of IV fluids during her stay and then placed on maintenance fluids for resolution of this hypotension. She was originally hospitalized for evaluation of syncope which she experienced after nausea, vomiting, and diarrhea. During her stay, her echocardiogram was found to be normal. On the day of discharge yesterday, she was feeling far improved. She is visiting [place] from [place] and we have little access to prior records. Since this morning, the patient has been feeling fatigued with shortness of breath and orthopnea as previously described. She does experience some chest pressure when lying down which is minimally relieved when upright but not totally resolved. She additionally noted that she is experiencing some left lower back pain last night, which was intermittent and severe. She additionally has been feeling chills and cough with some sputum production since this time. She was unable to describe the sputum. She does continue to have some intermittent loose stools but no diarrhea since her discharge. Additionally, she notes a headache. She denies nausea, vomiting, hematochezia, dizziness, visual changes , abdominal pain, syncope, chest pain, or any radiation of chest pressure to upper back, arms, neck, or jaw. ED COURSE: In the emergency department, the patient arrived with vital signs of temperature 98.1, heart rate 123, respiratory rate , oxygen saturation 96% on room air, blood pressure of 165/80. Of note, she had troponin elevated to 0.06 and the patient did receive 1 dose of 40 mg IV Lasix in the emergency department. The hospitalists were then asked to evaluate the patient for admission. PAST MEDICAL HISTORY: 1. Mixed connective tissue disease. 2. Sjogren's. 3. Rheumatoid arthritis. 4. Lymphoma of the lung, status post chemo in 2010. 5. Cytoma of right hip, status post radiation in 2013. 6. Left breast cancer, status post mastectomy in 2013. 7. Multiple myeloma diagnosed in 2016, currently observed without medical therapy by [facility]. 8. Bradycardia, with pacemaker. 9. Hypertension. 10. Hypothyroidism. PAST SURGICAL HISTORY: 1. Left mastectomy, 2013. 2. Pacemaker placed August 2018. 3. MediPort placed 2010. 4. Hysterectomy in the . HOME MEDICATIONS: 1. Protopic 0.03% topically b.i.d. p.r.n. 2. Betamethasone 1 application topically b.i.d. p.r.n. 3. Lisinopril 5 mg p.o. daily (of note, the patient has not been taking this medication since discharge on 11/17/18). 4. Advair 1 puff inhaled b.i.d. 5. Prolia 60 mg subcu twice yearly. 6. Zyrtec 10 mg p.o. daily. 7. Vitamin D 2000 units p.o. daily. 8. Arimidex 1 mg p.o. daily. 9. Prednisone 5 mg p.o. daily. 10. Plaquenil 400 mg p.o. daily. 11. Omeprazole 20 mg p.o. daily. 12. Gabapentin 100 mg p.o. four times a day. 13. Synthroid 75 mcg p.o. daily. ALLERGIES: SULFA DRUGS, CODEINE, LEVAQUIN, AZITHROMYCIN, PHENOBARBITAL, DARVON/ DARVOCET. FAMILY HISTORY: Mother of a stroke at age 74, who had history of diabetes mellitus. Father at age 90 with dementia. SOCIAL HISTORY: The patient lives with her in [place] and is visiting her granddaughter in [place] for the holiday weekend. The patient denies tobacco use, drinking, and drugs. The patient has never been a smoker. REVIEW OF SYSTEMS: A 11-point review of systems was completed and all pertinent positives and negatives are above in HPI. All other systems are negative. PHYSICAL EXAMINATION GENERAL: Elderly white female, lying in hospital bed, appearing in no acute distress. Nasal cannula in place on 3 L oxygen. HEENT: Head normocephalic, atraumatic. Eyes: PERRL. Sclerae anicteric. EOMI. ENT: Mucous membranes moist. NECK: Without lymphadenopathy. Neck is supple. No JVD. LUNGS: Clear to auscultation throughout. CARDIO: Regular rate and rhythm without murmurs, rubs, or gallops. ABDOMEN: Soft and nondistended. There is mild tenderness to palpation at the suprapubic region. No CVA tenderness. No masses or hepatosplenomegaly. EXTREMITIES: No edema, clubbing, or calf tenderness. NEUROLOGIC: No focal deficits. The patient is alert and oriented x3. PSYCH: Not responding to internal stimuli. Mood and affect are euthymic. MUSCULOSKELETAL: No tenderness to palpation throughout spine at the paraspinal muscles or on spinous processes. SKIN: Warm, dry, and intact. DIAGNOSTIC STUDIES/LAB DATA: White blood cell count 11.8, hemoglobin 9.9, hematocrit 30, platelet count 166. Sodium 143, potassium 3.4, chloride 112, CO2 22, BUN 31, creatinine 1.08, glucose 92, lactic acid 1.1. Troponin 0.06. BNP 963. EKG on 11/18/18: Ventricular paced rhythm with rate 79 beats per minute. No evidence of ischemia. Chest x-ray on 11/18/18, impression: Pacemaker leads in place. Central line is in place. Bilateral pleural effusions are noted. Increased interstitial edema is noted. ASSESSMENT AND PLAN: June Mitchell is a 73-year-old white female with past medical history significant for hypertension, bradycardia with pacemaker, history of breast cancer, history of cytoma of the right hip, history of lymphoma and multiple myeloma, who presents to the emergency department with shortness of breath and orthopnea. The patient will be admitted to observation for: 1. Orthopnea, shortness of breath. The symptoms are likely related to a diastolic congestive heart failure exacerbation. When the patient was recently admitted, she did receive high volumes of intravenous fluid for treatment of her hypotension. She did have an echocardiogram, which demonstrated an ejection fraction all within normal limits. Her chest x-ray does appear fluid overloaded and her symptomatology is consistent with a congestive heart failure exacerbation. She has received 40 mg of IV Lasix in the emergency department and we will continue to monitor her symptoms. No further Lasix ordered at this time and based on her symptomatology tomorrow, we can decide if she needs additional IV Lasix in the morning. The patient's BNP at admission was 963. Strict I and Os ordered. 2. Elevated troponin. The patient has a troponin elevated to 0.06 in the emergency department. This is likely related to her diastolic congestive heart failure exacerbation. However, given her risk factors of cancer history and recent travel from [place], the patient does have a moderate risk of pulmonary embolism and this will be ruled out with CT angiogram of the chest. Her troponins will be trended. She will be admitted to telemetry unit. The patient does not have prior history of coronary artery disease that she is aware of. Does not take any medication that would suggest such. Her EKG does not demonstrate ST changes concerning for myocardial infarction at this time. 3. Mixed connective tissue disease. The patient is on long-term oral prednisone and we will continue this. Additionally, we will continue her Plaquenil. 4. Hypertension. The patient's lisinopril has been held since her discharge given that she has significant hypotension; however, she has been hypertensive in the emergency department today. We will restart her home lisinopril 5 mg p.o. and order p.r.n. hydralazine for systolic blood pressure over 150. 5. Hypothyroidism. We will continue the patient on levothyroxine. 6. FEN. The patient is to have an unrestricted regular diet. No IV fluids at this time given she has pulmonary edema. We will continue to monitor her potassium and we will replace with p.o. potassium at this time given her potassium was 3.4 on admission. 7. Code status. The patient is DNR/DNI. MOLST has been updated. 8. DVT prophylaxis. The patient has a high risk of DVT, 40 mg daily Lovenox has been ordered. TIME SPENT: Approximately 55 minutes was spent on this admission, approximately half that time was spent at bedside. This case has been reviewed by my attending, Dr. Ngoc Brownlee, who is in agreement with this plan. VANITA COTA [id number]/[facility] #: [id number] [facility]
[2018-11-18] MEDS: cefTRIAXone(*) 1 GM in NS 0.9% 50 ML* 50 ML IVPB SCH (18:10)
[2018-11-18] MEDS: Enoxaparin(*) 40 MG/0.4 ML SYR SUBCUT SCH (18:10)
[2018-11-18] MEDS: Gabapentin CAP(*) 100 MG PO SCH ×2 (18:12→20:01)
[2018-11-18] MEDS: DOXYcycline IV* 100 MG in NS 0.9% 250 ML* 250 ML IVPB SCH (20:01)
[2018-11-18] MEDS: Mometasone/Formoter 100/5 MDI INH SCH (20:11)
--- NOTE | 2018-11-18 20:37 | PN ---
Hospitalist Progress Note Date of Service: 11/18/18 HOSPITALIST ADDENDUM Case reviewed and d/w Racquel WALDRON. Mrs Mitchell is a 73yo F with PMH of lymphoma, breast CA, multiple myeloma, HTN, s /p pacer, who was admitted last week with hypovolemia secondary to gastroenteritis, requiring fluid resuscitation. She was discharged yesterday feeling well and around 3 AM woke up with PND and orthopnea, likely diastolic CHF exacerbation secondary to fluid overload. Labs, EKG, CxR reviewed. Suspect mild troponin elevation is secondary to CHF, but with recent travel, will r/o PE. Agree with current management.
[2018-11-19] MEDS: Levothyroxine TAB* 75 MCG TAB PO SCH (05:31)
[2018-11-19 05:54] LABS: ABS Basophils 0 10^3/ul (0-0.2); ABS Eosinophils 0.1 10^3/ul (0-0.6); ABS Lymphocytes 2.1 10^3/ul (1.0-4.8); ABS Monocytes 0.9 10^3/ul (0-0.8); ABS Neutrophils 5.5 10^3/ul (1.5-7.7); ABS Nucleated RBC 0 10^3/ul; Eosinophil % 0.7 %; Hematocrit 28 % (33-41); Hemoglobin 9.3 g/dL (12.0-16.0); Mean Corpuscular HGB Conc 34 g/dL (31-36); Mean Corpuscular Hemoglobin 31 pg (27-31); Mean Corpuscular Volume 93 fL (80-97); Mean Platelet Volume 8.2 fL (7.4-10.4); Nucleated Red Blood Cells % 0.1; Platelet Count 150 10^3/uL (150-450); Red Blood Count 2.96 10^6 /uL (3.70-4.87); Red Cell Distribution Width 15 % (10.5-15); White Blood Count 8.6 10^3/uL (3.5-10.8)
[2018-11-19 06:08] LABS: BUN/Creatinine Ratio 19.1 (8-20); Calcium 7.5 mg/dL (8.6-10.3); EGFR African American 75.4 (>60); EGFR Non-African American 62.3 (>60); Potassium 3.2 mmol/L (3.5-5.0)
[2018-11-19] MEDS: Cetirizine* 10 MG TAB PO SCH (08:26)
[2018-11-19] MEDS: Gabapentin CAP(*) 100 MG PO SCH ×4 (08:26→20:03)
[2018-11-19] MEDS: Pantoprazole TAB * 40 MG TAB PO SCH (08:30)
[2018-11-19] MEDS: predniSONE TAB* 5 MG PO SCH (08:30)
[2018-11-19] MEDS: Hydroxychloroquine TAB* 200 MG PO SCH (08:30)
[2018-11-19] MEDS: Cholecalciferol TAB* 1000 UNITS PO SCH (08:30)
[2018-11-19] MEDS: Lisinopril TAB* 5 MG PO SCH (08:30)
[2018-11-19] MEDS: Mometasone/Formoter 100/5 MDI INH SCH ×2 (08:31→20:37)
[2018-11-19] MEDS: DOXYcycline IV* 100 MG in NS 0.9% 250 ML* 250 ML IVPB SCH ×2 (08:34→20:02)
[2018-11-19] MEDS ORDERED: Anastrozole (NF) 1 MG TAB PO SCH (09:00)
[2018-11-19] MEDS ORDERED: Calcium Gluconate INJ* 1 GM in NS 0.9% 50 ML* 50 ML IVPB ONE (09:38)
[2018-11-19] MEDS ORDERED: Potassium Chlor TAB* 20 MEQ TAB.ER PO STA (09:38)
[2018-11-19] MEDS ORDERED: Potassium Chloride LIQUID* 20 MEQ PACKET PO STA (10:23)
[2018-11-19 11:03] LABS: CKMB ng/mL 1.4 ng/mL (0.6-6.3)
[2018-11-19 11:04] LABS: Troponin I 0.05 ng/mL (<0.04)
[2018-11-19] MEDS: Enoxaparin(*) 40 MG/0.4 ML SYR SUBCUT SCH (13:24)
[2018-11-19] MEDS ORDERED: Furosemide IV* 10 MG/ML VIAL (40 MG) IV ONE (13:51)
--- NOTE | 2018-11-19 16:01 | PN ---
Subjective Date of Service: 11/19/18 Interval History: Pt seen and examined. Meds and labs reviewed. CC: N/A ROS: Denied CARLSON/dizziness, F/C, N/V, CP, SOB, increased cough, sputum production , abd pain, diarrhea, constipation, dysuria, myalgias, arthralgias, throat pain , and new skin lesions. The rest of the 14 point ROS are unremarkable. PHYSICAL EXAM: GEN APPEARANCE: Awake, not in acute distress HEENT: NC/AT, PERRLA, moist oral mucosa, (-) throat erythema NECK: Soft, supple, (-) cervical LAD, (-)JVD HEART: S1S2 WNL, RRR, No MRG CHEST: CTA, BL, GAE, No W/R/R ABD: Soft, ND/NT, NABS 4x Q EXT: No C/C/E SKIN: Warm to touch PSYCH: No active psychosis, hallucinations, depression, SI/HI Objective Active Medications: Acetaminophen (Tylenol Tab*) 650 mg PO Q4H PRN PRN Reason: FEVER/PAIN Al Hydrox/Mg Hydrox/Simethicone (Maalox Plus*) 30 ml PO Q6H PRN PRN Reason: INDIGESTION Anastrozole (Arimidex (Nf)) 1 mg PO DAILY [facility] Last Admin: 11/19/18 08:57 Dose: Not Given Cetirizine HCl (Zyrtec*) 10 mg PO DAILY [facility]; Protocol Last Admin: 11/19/18 08:26 Dose: 10 mg Cholecalciferol (Vitamin D Tab*) 2,000 units PO DAILY [facility] Last Admin: 11/19/18 08:30 Dose: 2,000 units Enoxaparin Sodium (Lovenox(*)) 40 mg SUBCUT Q24H [facility] Last Admin: 11/19/18 13:24 Dose: 40 mg Gabapentin (Neurontin Cap(*)) 100 mg PO QID [facility] Last Admin: 11/19/18 13:24 Dose: 100 mg Hydralazine HCl (Apresoline Iv*) 5 mg IV SLOW PU Q6H PRN PRN Reason: SYSTOLIC BP GREATER THAN: Hydroxychloroquine Sulfate (Plaquenil Tab*) 400 mg PO DAILY [facility] Last Admin: 11/19/18 08:30 Dose: 400 mg Ceftriaxone Sodium 1 gm/ (Sodium Chloride) 50 mls @ 200 mls/hr IVPB Q24H [facility] Last Admin: 11/18/18 18:10 Dose: 200 mls/hr Doxycycline Hyclate 100 mg/ (Sodium Chloride) 250 mls @ 250 mls/hr IVPB Q12H [facility] Last Admin: 11/19/18 08:34 Dose: 250 mls/hr Levothyroxine Sodium (Synthroid Tab*) 75 mcg PO 0600 [facility] Last Admin: 11/19/18 05:31 Dose: 75 mcg Lisinopril (Prinivil Tab*) 5 mg PO DAILY [facility] Last Admin: 11/19/18 08:30 Dose: 5 mg Mometasone Furoate/Formoterol Fumar (Dulera 100/5 Mdi*) 2 puff INH BID [facility] Last Admin: 11/19/18 08:31 Dose: 2 puff Pantoprazole Sodium (Protonix Tab*) 40 mg PO DAILY [facility] Last Admin: 11/19/18 08:30 Dose: 40 mg Prednisone (Deltasone Tab*) 5 mg PO DAILY [facility] Last Admin: 11/19/18 08:30 Dose: 5 mg Vital Signs - 8 hr 11/19/18 11/19/18 11/19/18 08:26 10:25 12:37 Temperature 98.7 F Pulse Rate 73 Respiratory 18 16 18 Rate Blood Pressure 123/52 (mmHg) O2 Sat by Pulse 100 Oximetry 11/19/18 11/19/18 13:24 15:29 Temperature 98.1 F Pulse Rate 61 Respiratory 16 16 Rate Blood Pressure 138/57 (mmHg) O2 Sat by Pulse 99 Oximetry Oxygen Devices in Use Now: Nasal Cannula Result Diagrams: 11/19/18 05:29 11/19/18 05:15 Microbiology and Other Data: Microbiology 11/18/18 10:30 Aerobic Blood Culture - Final Blood Venous Not Reportable Anaerobic Blood Culture - Final Not Reportable Blood Culture - Preliminary No Growth Day 1 Assess/Plan/Problems-Billing Assessment: - Patient Problems (1) Diastolic CHF Current Visit: Yes Status: Acute Code(s): I50.30 - UNSPECIFIED DIASTOLIC ( CONGESTIVE) HEART FAILURE SNOMED Code(s): 216687100 Comment: -Diastolic -Thought to be the cause of orthopnea, w/c has now resolved -Supported by significant improvement of BNP on presentation -Will check TSH -Give one more day of Lasix and reassess in AM (2) Elevated troponin Current Visit: Yes Status: Acute Code(s): R74.8 - ABNORMAL LEVELS OF OTHER SERUM ENZYMES SNOMED Code(s): 751970318 Comment: #Mildly elevated troponin: -Last 2D echo was on 11/15 and given above and lack of CP nor changes in EKG, likely due to above -Consider stress test as outpatientdefer w/PCP -Troponins peaked at 0.30 (3) MCTD (mixed connective tissue disease) Current Visit: Yes Status: Acute Code(s): M35.1 - OTHER OVERLAP SYNDROMES SNOMED Code(s): 313665503 Comment: -Continue low dose Prednisone and Hydroxychloroquine -Defer with outpt F/U with Emr Specialist (4) HTN (hypertension) Current Visit: Yes Status: Acute Code(s): I10 - ESSENTIAL (PRIMARY) HYPERTENSION SNOMED Code(s): 24556557 Comment: -Well-controlled -Continue Lisinopril (5) Hypothyroidism Current Visit: Yes Status: Acute Code(s): E03.9 - HYPOTHYROIDISM, UNSPECIFIED SNOMED Code(s): 82647432 Comment: -Continue Levothyroxine -Will check TSH (6) DVT prophylaxis Current Visit: Yes Status: Acute Code(s): [id number] - SNOMED Code(s): 610437327 Comment: -Continue Lovenox 40 mg SQ Status and Disposition: -For ambulatory sats in AM -For possible D/C in AM
[2018-11-19] MEDS: cefTRIAXone(*) 1 GM in NS 0.9% 50 ML* 50 ML IVPB SCH (16:48)
[2018-11-19 18:03] LABS: TSH (Thyroid Stimulating Horm) 0.94 mcIU/mL (0.34-5.60)
[2018-11-20] MEDS: Levothyroxine TAB* 75 MCG TAB PO SCH (05:59)
[2018-11-20 06:30] LABS: ABS Basophils 0.1 10^3/ul (0-0.2); ABS Eosinophils 0.2 10^3/ul (0-0.6); ABS Lymphocytes 1.9 10^3/ul (1.0-4.8); ABS Monocytes 0.9 10^3/ul (0-0.8); ABS Neutrophils 5.4 10^3/ul (1.5-7.7); ABS Nucleated RBC 0 10^3/ul; Eosinophil % 1.9 %; Hematocrit 29 % (33-41); Hemoglobin 9.6 g/dL (12.0-16.0); Lymphocyte % 22.9 %; Mean Corpuscular HGB Conc 34 g/dL (31-36); Mean Corpuscular Hemoglobin 31 pg (27-31); Mean Corpuscular Volume 93 fL (80-97); Mean Platelet Volume 8.5 fL (7.4-10.4); Nucleated Red Blood Cells % 0.1; Platelet Count 163 10^3/uL (150-450); Red Blood Count 3.06 10^6 /uL (3.70-4.87); Red Cell Distribution Width 15 % (10.5-15); White Blood Count 8.4 10^3/uL (3.5-10.8)
[2018-11-20 06:41] LABS: Albumin/Globulin Ratio 1.3 (1-3); Calcium 7.8 mg/dL (8.6-10.3); EGFR African American 75.4 (>60); EGFR Non-African American 62.3 (>60); Globulin 2.4 g/dL (2-4); Magnesium 1.6 mg/dL (1.9-2.7); Phosphorus 2.6 mg/dL (2.5-5.0); Potassium 3.5 mmol/L (3.5-5.0); Total Bilirubin 0.4 mg/dL (0.2-1.0); Total Protein 5.4 g/dL (6.4-8.9)
[2018-11-20] MEDS: Mometasone/Formoter 100/5 MDI INH SCH (08:39)
[2018-11-20] MEDS: Cholecalciferol TAB* 1000 UNITS PO SCH (08:45)
[2018-11-20] MEDS: predniSONE TAB* 5 MG PO SCH (08:46)
[2018-11-20] MEDS: Lisinopril TAB* 5 MG PO SCH (08:46)
[2018-11-20] MEDS: Gabapentin CAP(*) 100 MG PO SCH ×2 (08:46→13:54)
[2018-11-20] MEDS: Pantoprazole TAB * 40 MG TAB PO SCH (08:48)
[2018-11-20] MEDS: Cetirizine* 10 MG TAB PO SCH (08:56)
[2018-11-20] MEDS: Hydroxychloroquine TAB* 200 MG PO SCH (08:56)
[2018-11-20] MEDS: DOXYcycline IV* 100 MG in NS 0.9% 250 ML* 250 ML IVPB SCH (08:59)
[2018-11-20] MEDS ORDERED: ANASTROZOLE 1 MG PO SCH (09:00)
[2018-11-20] MEDS ORDERED: Magnesium Sulf 4 GM/100 ML IV* 4,000 MG/100 ML BAG IVPB ONE (11:00)
[2018-11-20] MEDS: Enoxaparin(*) 40 MG/0.4 ML SYR SUBCUT SCH (13:54)
[2018-11-20 15:14] VITALS: BP 115/47
--- NOTE | 2018-11-20 22:43 | DS ---
CC: Dr. Ngoc Brownlee; Dr. Tello Corona * DISCHARGE SUMMARY: DATE OF ADMISSION: 11/18/18 DATE OF DISCHARGE: 11/20/18 DISCHARGE CONDITION: Stable. DISCHARGE DISPOSITION: Home. DISCHARGE DIAGNOSES: Are as follows: 1. Diastolic congestive heart failure exacerbation. 2. Possible healthcare-associated pneumonia given recent hospitalization. 3. Mildly elevated troponins likely due to above and acute kidney injury that has been now resolved. 4. Mixed connective tissue disease, history of. 5. Hypertension, history of. DISCHARGE MEDICATIONS: 1. Anastrozole 1 mg p.o. daily. 2. Cetirizine 10 mg p.o. daily. 3. Cholecalciferol 2000 units p.o. daily. 4. Advair Diskus 100/50 one puff inhalation b.i.d. 5. Gabapentin 100 mg p.o. q.i.d. 6. Hydroxychloroquine 400 mg p.o. daily. 7. Synthroid 75 mcg p.o. daily. 8. Lisinopril 5 mg p.o. daily. 9. Omeprazole 20 mg p.o. daily. 10. Prednisone 5 mg p.o. daily. 11. Betamethasone 1 application topically b.i.d. p.r.n. 12. Denosumab 60 mg subcu twice yearly. 13. Doxycycline 100 mg p.o. b.i.d. for 7 days. 14. Floranex 2 tabs p.o. daily for 10 more days. 15. Tacrolimus 0.03% ointment 1 application topically b.i.d. p.r.n. 16. Torsemide 20 mg p.o. daily. HISTORY OF PRESENT ILLNESS/HOSPITAL COURSE: The patient is a 73-year-old lady with a history significant for lymphoma, left breast cancer, multiple myeloma, and hypertension, visiting [place] from [place], who was admitted due to shortness of breath and orthopnea on 11/18/18, primarily due to CHF exacerbation, although pneumonia could not be ruled out given she complained of some chills, some cough with sputum production on admission. She was also placed on doxycycline. Cultures have been negative. Prior to her discharge, her blood cultures were negative and her leukocytosis had normalized. She was found to have mildly elevated troponin, but the MB fraction is not suggestive of an NSTEMI with a 0.7% MB fraction. In addition, the patient did not complain of any chest pain, and mildly elevated troponin is possibly due to acute CHF exacerbation with possible healthcare-associated pneumonia in the setting of acute renal insufficiency on presentation which has since resolved. Her BNP was found to have improved from 963 to 498 prior to her discharge. She did have an ambulatory saturation test done; however, she required 2 L on exertion, and this will be prescribed for her prior to her discharge. She had been advised to follow up and/or call [facility] within 2 to 3 days post discharge and she was reminded that they will be the one making the final recommendations as to whether she can go to her planned flight on Monday back to [place] and we will defer. She was advised to stay on a low-sodium diet, no more than 2 g of sodium per day. She was advised to call my office regarding any questions, concerns, or further clarifications regarding her discharge plans and/or prescriptions and to take her medications as prescribed. REVIEW OF SYSTEMS: She denied any headaches, dizziness, fevers, chills, nausea , vomiting, chest pain, shortness of breath, increased cough and/or sputum production, abdominal pain, diarrhea, constipation, pain and/or increased frequency on urination, myalgias, arthralgias, throat pain, or new skin lesions. The rest of the 14-point review of systems is otherwise unremarkable. PHYSICAL EXAMINATION: Shows the most recent vital signs of record with blood pressure of 115/47, 71 beats per minute heart rate, 18 per minute respiratory rate, saturating at 93% on room air. General Appearance: The patient is awake , alert, and oriented x3, not in acute distress. HEENT: Normocephalic, atraumatic. PERRLA. Extraocular muscles intact. Negative for icterus. Moist oral mucosa. Negative throat erythema. Neck is soft, supple with no cervical lymphadenopathy. No JVD. Heart: S1, S2 within normal limits. Regular rate and rhythm. No murmurs, rubs, or gallops. Chest: Clear to auscultation bilaterally. Good air entry. No wheezes, rales, or rhonchi. Abdomen is soft, nondistended, nontender. Normoactive bowel sounds x4 quadrants. Extremities: No cyanosis, clubbing, or edema. Psychiatric: No active psychosis, depression , suicidal or homicidal ideation. Skin is warm to touch. TIME SPENT: The total time spent evaluating the patient, reviewing pertinent data and appropriate documentation is 45 minutes. [id number]/[facility] #: [id number] [facility]
== END 2018-11-20 16:35 | disposition home or self-care (01) ==
LOC: ED 09:24 → MEDTELE 13:16
PROVIDERS: ADMIT Internal Medicine; ATTEND Student in an Organized Health Care Education/Training Program
DX: I50.30 Unspecified diastolic (congestive) heart failure (principal); I10 Essential (primary) hypertension; M35.00 Sjogren syndrome, unspecified; M06.9 Rheumatoid arthritis, unspecified; Z85.72 Personal history of non-Hodgkin lymphomas; Z85.3 Personal history of malignant neoplasm of breast; Z90.12 Acquired absence of left breast and nipple; Z95.0 Presence of cardiac pacemaker; E03.9 Hypothyroidism, unspecified; Z79.899 Other long term (current) drug therapy; Z88.5 Allergy status to narcotic agent; Z88.2 Allergy status to sulfonamides; Z82.3 Family history of stroke; Z87.39 Personal history of other diseases of the musculoskeletal system and connective tissue
CPT/HCPCS: 36415; 71045; 71275; 80048; 80053; 82550; 82553; 83605; 83735; 83880; 84100; 84443; 84484; 85025; 87040; 93005; 94640; 96365; 96366; 96372; 96375; 99284; A9270-GY; G0378; J0610; J0696; J1642; J1650; J1940; J3475; J7512; Q9967